=== PATIENT | female | born 1975 ===

== ENCOUNTER → 2021-02-12 | Outpatient (CLI) | payer OTHER ==
[~2021-02-12] MED LIST: ATABEX PRENATAL1 TAB PO; HEMATRON P.O.1 UDTAB PO; ZEBUTAL 50-3251 EACH PO
== END | disposition home or self-care (01) ==
LOC: PPH VACUNA 13:00
DX: Z23 Encounter for immunization (principal)

== ENCOUNTER 2021-03-05 08:00 | Outpatient (CLI) | payer OTHER ==
[~2021-03-05 08:00] MED LIST changes: -ZEBUTAL 50-3251 EACH PO
== END 2021-03-05 08:30 | disposition home or self-care (01) ==
LOC: PPH VACUNA 08:00
DX: Z23 Encounter for immunization (principal)

== ENCOUNTER 2021-06-15 22:39 | Emergency (ER) | payer OTHER ==
[~2021-06-15] VITALS: Ht 152.4 cm; Wt 78.0 kg
[2021-06-16] MEDS ORDERED: ZEBUTAL 50-3251 EACH PO (02:37)
== END 2021-06-16 02:40 ==
LOC: ER 22:39
DX: G43.901 Migraine, unspecified, not intractable, with status migrainosus (principal); G44.89 Other headache syndrome; R42 Dizziness and giddiness

== ENCOUNTER → 2021-07-08 | Emergency (ER) | payer OTHER ==
[~2021-07-08] VITALS: Ht 162.6 cm; Wt 78.0 kg
[~2021-07-08] MED LIST changes: +SKELAGESIC PO; +TENCON 50-3251 EACH PO; +ZEBUTAL 50-3251 EACH PO; +ZITHROMAX500 MG PO
== END | disposition home or self-care (01) ==
LOC: ER 11:14
DX: R09.81 Nasal congestion (principal); B96.0 Mycoplasma pneumoniae [M. pneumoniae] as the cause of diseases classified elsewhere; Z03.818 Encounter for observation for suspected exposure to other biological agents ruled out

== ENCOUNTER → 2022-01-16 | Emergency (ER) | payer OTHER ==
[~2022-01-16] VITALS: Ht 162.6 cm; Wt 80.7 kg
[~2022-01-16] MED LIST changes: +COZAAR50 MG; +EMETROL ORAL S118 ML; +FERROUS FUMARA324 MG PO; +GLIMEPIRIDE1 MG; +IRON18 MG; +MEDROLPACK PO; +NORFLEX100MG PO
== END | disposition home or self-care (01) ==
LOC: ER 23:33
DX: R07.89 Other chest pain (principal); D50.9 Iron deficiency anemia, unspecified; Z88.6 Allergy status to analgesic agent; Z88.0 Allergy status to penicillin

== ENCOUNTER 2023-03-24 14:13 | Emergency (ER) | payer OTHER ==
[~2023-03-24] VITALS: Ht 162.6 cm; Wt 78.5 kg
== END 2023-03-24 17:42 | disposition home or self-care (01) ==
LOC: ER 14:13
DX: J06.9 Acute upper respiratory infection, unspecified (principal); Z88.0 Allergy status to penicillin; Z88.6 Allergy status to analgesic agent

== ENCOUNTER 2023-10-23 01:06 | Emergency (ER) | payer OTHER ==
[~2023-10-23] VITALS: Ht 162.6 cm; Wt 76.2 kg
[2023-10-23 03:35] LABS: PH,URINE 6.5 (5.0-8.0); URINE APPEARANCE Cloudy; URINE BILIRRUBIN Negative (NEGATIVE); URINE BLOOD Negative; URINE COLOR Yellow; URINE GLUCOSE Negative (NEGATIVE); URINE LEUKOCYTE Negative; URINE NITRATE Negative; URINE PROTEIN Negative (NEGATIVE); URINE UROBILINOGEN 0.2 E.U./dl
[2023-10-23 03:36] LABS: URINE EPITHELIAL CELLS 141.8 uL (0.0-38.8); URINE RBC 2.2 uL (0.0-20.8); URINE WBC 4.7 uL (0.0-23.2)
[2023-10-23 03:40] LABS: HEMATOCRIT 31.9 % (36.0-45.00); HEMOGLOBIN 10.3 g/dL (12.0-15.00); MEAN CELL VOLUME 71.6 fL (80.00-100.00); MEAN CORPUSCULAR HEMOGLOBIN 23.1 pg (27.00-32.0); MEAN CORPUSCULAR HGB CONC 32.3 g/dl (32.0-36.0); PLATELET COUNT 390 K/uL (150-450); RED BLOOD COUNT 4.46 M/uL (4.00-6.00)
[2023-10-23 03:49] LABS: CALCIUM 9.7 mg/dL (8.5-10.1); CREATININE SERUM 0.69 mg/dL (0.55-1.02); GFR 91.59; POTASSIUM 3.69 mEq/L (3.5-5.1)
== END 2023-10-23 06:02 | disposition home or self-care (01) ==
LOC: ER 01:06
DX: R10.31 Right lower quadrant pain (principal); Z88.6 Allergy status to analgesic agent; Z88.0 Allergy status to penicillin

== ENCOUNTER 2023-10-23 11:32 | Emergency (ER) | payer OTHER ==
[~2023-10-23] VITALS: Ht 162.6 cm; Wt 75.7 kg
[2023-10-23 13:00] LABS: URINE APPEARANCE Clear; URINE BILIRRUBIN Negative (NEGATIVE); URINE BLOOD Negative; URINE COLOR Yellow; URINE GLUCOSE Negative (NEGATIVE); URINE LEUKOCYTE Negative; URINE NITRATE Negative; URINE PROTEIN Negative (NEGATIVE); URINE UROBILINOGEN 0.2 E.U./dl
[2023-10-23 13:01] LABS: URINE BACTERIA 117.1 uL (0.0-1933); URINE EPITHELIAL CELLS 6.8 uL (0.0-38.8)
[2023-10-23 13:04] LABS: HEMATOCRIT 31.9 % (36.0-45.00); MEAN CELL VOLUME 70.6 fL (80.00-100.00); MEAN CORPUSCULAR HEMOGLOBIN 22.2 pg (27.00-32.0); MEAN CORPUSCULAR HGB CONC 31.4 g/dl (32.0-36.0); PLATELET COUNT 378 K/uL (150-450); RED BLOOD COUNT 4.52 M/uL (4.00-6.00)
[2023-10-23 13:08] LABS: URINE RBC 0.7 uL (0.0-20.8)
[2023-10-23 13:16] LABS: INR 0.98; PARTIAL THROMBOPLASTIN TIME 30.9 SECONDS (22.0-34.0); PROTHROMBIN TIME 10.3 SECONDS (9.0-11.5)
[2023-10-23 13:21] LABS: CALCIUM 9.4 mg/dL (8.5-10.1); CREATININE SERUM 0.65 mg/dL (0.55-1.02); GFR 98.13; POTASSIUM 4.41 mEq/L (3.5-5.1)
== END 2023-10-23 15:45 | disposition home or self-care (01) ==
LOC: ER 11:32
PROVIDERS: General Practice
DX: T50.905A Adverse effect of unspecified drugs, medicaments and biological substances, initial encounter (principal); Y92.89 Other specified places as the place of occurrence of the external cause; Z88.6 Allergy status to analgesic agent; Z88.0 Allergy status to penicillin

== ENCOUNTER 2023-12-03 15:14 | Outpatient (CLI) | payer OTHER | END 2023-12-03 15:18 | disposition home or self-care (01) | LOC: RAD 15:14 | DX: M60.89 Other myositis, multiple sites (principal); M54.12 Radiculopathy, cervical region; M54.13 Radiculopathy, cervicothoracic region ==

== ENCOUNTER 2024-01-03 13:40 | Outpatient (CLI) | payer OTHER | END 2024-01-03 13:50 | disposition home or self-care (01) | LOC: MAMO-SONO 13:40 | PROVIDERS: ATTEND Obstetrics & Gynecology Gynecology | DX: N64.4 Mastodynia (principal) ==

== ENCOUNTER 2025-01-09 08:09 | Outpatient (CLI) | payer OTHER | END 2025-01-09 08:16 | disposition home or self-care (01) | LOC: MAMO-SONO 08:09 | PROVIDERS: ATTEND Obstetrics & Gynecology Gynecology | DX: N64.4 Mastodynia (principal); Z12.31 Encounter for screening mammogram for malignant neoplasm of breast ==